=== PATIENT | female | born 1960 | race Caucasian/White ===

== ENCOUNTER 2018-08-31 14:04 | Outpatient (CLI) | payer OTHER ==
--- NOTE | 2018-08-31 15:30 | RAD ---
LEFT HIP 2 VIEWS: INDICATION: Left hip pain. COMPARISON: None. FINDINGS: No acute fracture or subluxation is evident. IMPRESSION: Left hip appears radiographically normal. POS: [facility]
--- NOTE | 2018-08-31 15:31 | RAD ---
LUMBAR SPINE SERIES 3 VIEWS: HISTORY: Back pain. FINDINGS: Vertebral bodies are normal in height. Small osteophytes are seen without disk narrowing. Pedicles are intact. Degenerative facet changes are seen. No spondylolisthesis. IMPRESSION: Minimal arthritic changes of the spine. Findings mainly related to degenerative facet changes. POS: [facility]
== END 2018-08-31 14:05 | disposition home or self-care (01) ==
LOC: RAD-FRANK 14:04
PROVIDERS: ATTEND Nurse Practitioner Family
DX: M54.32 Sciatica, left side (principal); M25.552 Pain in left hip; M47.816 Spondylosis without myelopathy or radiculopathy, lumbar region
CPT/HCPCS: 72100

== ENCOUNTER 2019-12-24 09:52 | Outpatient (CLI) | payer BC ==
--- NOTE | 2019-12-24 10:25 | RAD ---
EXAM: 3 views of the right wrist HISTORY: Wrist pain COMPARISON: None FINDINGS: 3 views of the right wrist shows no evidence of acute fracture or dislocation. No soft tiss ue swelling is seen. No degenerative changes are present. IMPRESSION: No evidence of acute osseous abnormality.
== END 2019-12-24 09:53 | disposition home or self-care (01) ==
LOC: BICRAD 09:52
PROVIDERS: ATTEND Family Medicine
DX: M25.531 Pain in right wrist (principal)

== ENCOUNTER 2021-05-29 12:31 | Outpatient (CLI) | payer BC | END 2021-05-29 12:32 | disposition home or self-care (01) | LOC: BICMAMMO 12:31 | PROVIDERS: ATTEND Family Medicine | DX: Z12.31 Encounter for screening mammogram for malignant neoplasm of breast (principal); Z80.3 Family history of malignant neoplasm of breast | CPT/HCPCS: 77063; 77067 ==